=== PATIENT | male | born 2000 | race Caucasian/White ===

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

== ENCOUNTER 2021-05-15 08:42 | Emergency (ER) | payer OTHER ==
[~2021-05-15] VITALS: Ht 172.7 cm; Wt 82.7 kg
[2021-05-15 08:42] VITALS: BP 134/70
[~2021-05-15 08:42] MED LIST changes: -ASPE4PAD TOP; -METH-1165 PO; -NAPR-837 PO
--- OUTSIDE RECORDS SUMMARY | 2021-05-15 08:48 | CCD ---
Author Author [facility] Organization [facility] Address Unknown Phone Unavailable Care Team Providers Care Signs Sales Representative Name Role Phone Lizama, Mariia C UNIX DEVELOPER Unavailable Unavailable Lizama, Mariia C UNIX DEVELOPER Unavailable Unavailable Lizama, Mariia C UNIX DEVELOPER Unavailable Unavailable Lizama, Mariia C UNIX DEVELOPER Unavailable Unavailable Lizama, Mariia C UNIX DEVELOPER Unavailable Unavailable Lizama, Mariia C UNIX DEVELOPER Unavailable Unavailable Lizama, Mariia C UNIX DEVELOPER Unavailable Unavailable Lizama, Mariia C UNIX DEVELOPER Unavailable Unavailable Lizama, Mariia C UNIX DEVELOPER Unavailable Unavailable Lizama, Mariia C UNIX DEVELOPER Unavailable Unavailable Lizama, Mariia C UNIX DEVELOPER Unavailable Unavailable Lizama, Mariia C UNIX DEVELOPER Unavailable Unavailable Lizama, Mariia C UNIX DEVELOPER Unavailable Unavailable Re-disclosure Warning The records that you are about to access may contain information from federally-assisted alcohol or drug abuse programs. If such information is present, then the following federally mandated warning applies: This information has been disclosed to you from records protected by federal confidentiality rules (42 CFR part 2). The federal rules prohibit you from making any further disclosure of this information unless further disclosure is expressly permitted by the written consent of the person to whom it pertains or as otherwise permitted by 42 CFR part 2. A general authorization for the release of medical or other information is NOT sufficient for this purpose. The Federal rules restrict any use of the information to criminally investigate or prosecute any alcohol or drug abuse patient.The records that you are about to access may contain highly sensitive health information, the redisclosure of which is protected by Article 27-F of the [facility] Public Health law. If you continue you may have access to information: Regarding HIV / AIDS; Provided by facilities licensed or operated by the [facility] Office of Mental Health; or Provided by the [facility] Office for People With Developmental Disabilities. If such information is present, then the following [facility] mandated warning applies: This information has been disclosed to you from confidential records which are protected by state law. State law prohibits you from making any further disclosure of this information without the specific written consent of the person to whom it pertains, or as otherwise permitted by law. Any unauthorized further disclosure in violation of state law may result in a fine or custodial sentence or both. A general authorization for the release of medical or other information is NOT sufficient authorization for further disc losure. Family History Family Member Name Family Member Gender Family Member Status Date o f Status Description Data Source(s) Unknown Unknown Problem [facility] ([facility]) father Encounters Encounter Providers Location Date Indications Data Source(s ) Outpatient Attender: Mariia telles 08/18/2020 12:30:00 PM EST [facility] ([facility]) Medications Medication Brand Name Start Date Product Form Dose Route Admi nistrative Instructions Pharmacy Instructions Status Indications Reaction Description Data Source(s) 875 mg 07/24/2020 12:00:00 AM EST tablet 20 TAKE ONE TABLET BY MOUTH TWICE A DAY TAKE ONE TABLET BY MOUTH TWICE A DAY SOLD: 07/24/2020 [facility] 50 mcg/actuation 07/24/2020 12:00:00 AM EST spray,suspension 16 SPRAY TWO SPRAYS IN EACH NOSTRIL ONCE DAILY SPRAY TWO SPRAYS IN EACH NOSTRIL ONCE DAILY SOLD: 07/24/2020 [facility] Insurance Providers Payer name Policy type / Coverage type Policy ID Covered green party ID Covered green party's relationship to selby Policy Selby Plan Information [employer] Claims Health Maintenance Organization (HMO) [id number] Family Dependent [employer] [id number] Family Dependent r/[facility]/[employer] Health Maintenance Organization (HMO) [id number] Self [id number] [employer] [id number] FA2 [id number] [employer] [id number] Family Dependent [id number] [employer] [id number] Family Dependent [id number] [employer] [id number] 2.0.1.484879.3.227.99.1 767.05053.0 Family Dependent [id number] [employer] [id number] [id number] [id number] Family Dependent [id number] [employer] [id number] 2.0.1.630775.3.227.99.1 767.06404.0 Family Dependent [id number] [employer] [id number] [id number] [id number] Family Dependent [id number] [employer] [id number] 2.0.1.591426.3.227.99.1 767.48467.0 Family Dependent [id number] [employer] [id number] 2.0.1.707187.3.227.99.1 767.61086.0 Family Dependent [id number] [employer] [id number] Family Dependent [id number] [employer] [id number] 2.0.1.108346.3.227.99.1 767.68356.0 Family Dependent [id number] [employer] [id number] [id number] 767.76561.0 Family Dependent [id number] [employer] [id number] [id number] [employer] [id number] [employer] [id number] [employer] [id number] [employer] [id number] [facility] Health Claims Health Maintenance Organization (HMO) [id number] Family Dependent [facility] [id number] FA2 [id number] [employer] P[employer] P [id number] C [id number] [employer] P [id number] O [id number] Problems, Conditions, and Diagnoses No Information Surgeries/Procedures No Information Results No Information Social History No Information Vital Signs ID Date Data Source UNK Name Value Range Interpretation Code Description Data Source(s) Systolic blood pressure 130 mm[Hg] 130 mm[Hg] [facility] Diastolic blood pressure 78 mm[Hg] 78 mm[Hg] [facility] Heart rate 67 /min 67 /min [facility] ([facility], [facility]) Respiratory rate 16 /min 16 /min [facility] ( [facility], [facility]) Oxygen saturation in Arterial blood by Pulse oximetry 97 % 97 % [facility] ([facility], [facility]) Body temperature 97.5 [degF] 97.5 [degF] [facility] ([facility], [facility]) Body weight 195.00 [lb_av] 195.00 [lb_av] [facility] ([facility], [facility]) Body height 68 [in_i] 68 [in_i] [facility] ([facility]) 5'8" Body mass index (BMI) [Ratio] 29.6 kg/m2 29.6 k g/m2 [facility] ([facility], [facility])
[2021-05-15] MEDS ORDERED: diazePAM 5MG TABLET PO ONE (10:25)
[2021-05-15] MEDS ORDERED: diazePAM 10 MG TAB PO ONE (10:25)
[2021-05-15] MEDS ORDERED: KETOROLAC 60MG 2ML VIAL IM ONE (10:25)
[2021-05-15] MEDS ORDERED: LIDOCAINE 5% (LIDODERM) PATCH TD ONE (10:25)
--- OUTSIDE RECORDS SUMMARY | 2021-05-15 10:40 | CCD ---
Author Author [facility] Organization [facility] Address Unknown Phone Unavailable Care Team Providers Care Hand Sprayer Name Role Phone Lizama, Mariia SCAFFOLD WORKER Unavailable Unavailable Lizama, Mariia SCAFFOLD WORKER Unavailable Unavailable Lizama, Mariia SCAFFOLD WORKER Unavailable Unavailable Lizama, Mariia SCAFFOLD WORKER Unavailable Unavailable Lizama, Mariia SCAFFOLD WORKER Unavailable Unavailable Lizama, Mariia SCAFFOLD WORKER Unavailable Unavailable Lizama, Mariia SCAFFOLD WORKER Unavailable Unavailable Lizama, Mariia SCAFFOLD WORKER Unavailable Unavailable Lizama, Mairia SCAFFOLD WORKER Unavailable Unavailable Lizama, Mariia SCAFFOLD WORKER Unavailable Unavailable Lizama, Mariia SCAFFOLD WORKER Unavailable Unavailable Lizama, Mariia SCAFFOLD WORKER Unavailable Unavailable Lizama, Mariia SCAFFOLD WORKER Unavailable Unavailable Re-disclosure Warning The records that [...] is protected by Article 27-F of the [facility] Public Health law. If you continue you may have access to information: Regarding HIV / AIDS; Provided by facilities licensed or operated by the [facility] Office of Mental Health; or Provided by the [facility] Office for People With Developmental Disabilities. If such information is present, then the following [facility] mandated warning applies: This information has been [...] Mariia telles 08/18/2020 12:30:00 PM EST [facility] ([facility]) Medications Medication Brand [...] type / Coverage type Policy ID Covered republican ID Covered republican's relationship to selby Policy Selby Plan Information [employer] Claims Health Maintenance Organization (HMO) [id number] Family Dependent [employer] [id number] Family Dependent r/[facility]/[employer] Health Maintenance Organization (HMO) [id number] Self [id number] [employer] [id number] FA2 [id number] [employer] [id number] [id number] [id number] Family Dependent [id number] [employer] [id number] 2.840.1.116228.3.227.99.1 767.81188.0 Family Dependent [id number] [employer] [id number] 2.0.1.710845.3.227.99.1 767.38314.0 Family Dependent [id number] [employer] [id number] 2.0.1.663160.3.227.99.1 767.80024.0 Family Dependent [id number] [employer] [id number] 2.0.1.648128.3.227.99.1 767.64343.0 Family Dependent [id number] [employer] [id number] 2.0.1.482956.3.227.99.1 767.02617.0 Family Dependent [id number] [employer] [id number] 2.0.1.356127.3.227.99.1 767.15219.0 Family Dependent [id number] [employer] [id number] 2.0.1.843831.3.227.99.1 767.67793.0 Family Dependent [id number] [employer] [id number] [id number] 767.92290.0 Family Dependent [id number] [employer] [id number] 2.0.1.008761.3.227.99.1 767.18078.0 Family Dependent [id number] [employer] [id number] 2.0.1.391318.3.227.99.1 767.85486.0 Family Dependent [id number] [employer] [id number] 2.0.1.902[id number] [employer] [id number] 2.16.840.1.444[id number] [employer] [id number] 2.16.840.1.260[id number] [employer] [id number] [employer] [id number] [facility] Health Claims Health Maintenance Organization (HMO) [id number] Family Dependent [facility] [id number] FA2 [id number] [employer] P[employer] P [id number] C [id number] [employer] P [id number] O [id number] Problems, Conditions, and Diagnoses No Information Surgeries/Procedures No Information Results No Information Social History No Information Vital Signs ID Date Data Source UNK Name Value Range Interpretation Code Description Data Source(s) Systolic blood pressure 130 mm[Hg] 130 mm[Hg] [facility]) Diastolic blood pressure 78 mm[Hg] 78 mm[Hg] [facility], [facility]) Heart rate 67 /min 67 /min [facility] ([facility], [facility]) Respiratory rate 16 /min 16 /min [facility] ( [facility], [facility]) Oxygen saturation in Arterial blood by Pulse oximetry 97 % 97 % [facility] ([facility], [facility]) Body temperature 97.5 [degF] 97.5 [degF] [facility] ([facility], [facility]) Body weight 195.00 [lb_av] 195.00 [lb_av] [facility] ([facility], [facility]) Body height 68 [in_i] 68 [in_i] [facility] ([facility]) 5'8" Body mass index (BMI) [Ratio] 29.6 kg/m2 29.6 k g/m2 [facility] ([facility], [facility])
[2021-05-15] MEDS ORDERED: NAPR-837 PO (11:06)
[2021-05-15] MEDS ORDERED: METH-1165 PO (11:06)
[2021-05-15] MEDS ORDERED: ASPE4PAD TOP (11:06)
[2021-05-15] MEDS ORDERED: **NOTE PATIENT COMMENT** MISC XX SCH (21:00)
== END 2021-05-15 11:14 | disposition home or self-care (01) ==
LOC: M ED 08:42
DX: M54.50 Low back pain, unspecified (principal)
CPT/HCPCS: 96372; 99282; J1885

== ENCOUNTER → 2021-05-15 | Outpatient (CLI) | payer OTHER ==
[~2021-05-15] MED LIST changes: -ACET1TAB17 PO; +ACET1TAB55 PO; +ASPE4PAD TOP; +METH-1165 PO; +MILK120011 PO; -MILKSUS PO; +NAPR-837 PO; +ZOFR4TAB14 PO
--- NOTE | 2021-05-15 13:22 | REP ---
INDICATION: LOW BACK PAIN COMPARISON: None. TECHNIQUE: AP, lateral, coned-down views of the lumbar spine. FINDINGS: Three views of the lumbosacral spine demonstrate satisfactory alignment and lordosis without acute fracture / compression injury or subluxation. No significant degenerative changes are appreciated. 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 IMPRESSION: 1. No acute fracture / compression injury or subluxation. 2. No significant degenerative changes. 3. 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 <Electronically signed by Maikel Hwang > 05/15/21 [id number]
== END ==
LOC: M SOG 13:05
PROVIDERS: ATTEND Orthopaedic Surgery
DX: M54.50 Low back pain, unspecified (principal)

== ENCOUNTER → 2021-11-16 | Outpatient (REF) | payer OTHER ==
[~2021-11-16] MED LIST changes: +ASPE4PAD TOP; +METH-1165 PO; +NAPR-837 PO
== END ==
LOC: M LAB REF 17:21
PROVIDERS: ATTEND Pain Medicine Interventional Pain Medicine
DX: Z01.89 Encounter for other specified special examinations (principal)

== ENCOUNTER 2023-11-29 04:31 | Emergency (ER) | payer OTHER ==
[~2023-11-29] VITALS: Ht 172.7 cm; Wt 93.0 kg
[2023-11-29] MEDS: NS 1,000 ML IV ONE ×2 (04:50→05:20)
[2023-11-29 05:02] LABS: BASO % 0.3 % (0.0-1.0); EOS # 0.2 10^3/uL (0.0-0.5); EOS % 1.8 % (0.0-3.0); HEMOGLOBIN 15.5 g/dl (13.5-17.5); LYMPH # 2.2 10^3/uL (1.5-5.0); LYMPH % 17.5 % (24.0-44.0); MEAN CORPUSCULAR HEMOGLOBIN 31.7 pg (27.0-33.0); MEAN CORPUSCULAR VOLUME 85.9 fl (80.0-96.0); MONO # 0.9 10^3/uL (0.0-0.8); MONO % 7.5 % (2.0-8.0); NEUTROPHILS # 9.1 10^3/uL (1.5-8.5); NEUTROPHILS % 72.7 % (36.0-66.0); PLATELET COUNT, AUTOMATED 273 10^3/uL (150-450); RED BLOOD COUNT 4.89 10^6/uL (4.30-6.10); WHITE BLOOD COUNT 12.6 10^3/uL (4.0-10.0)
[2023-11-29 05:05] LABS: MEAN CORPUSCULAR HGB CONC 36.9 g/dl (32.0-36.5)
[2023-11-29 05:30] LABS: BLOOD UREA NITROGEN 15 MG/DL (9-23); CALCIUM LEVEL 8.9 MG/DL (8.5-10.1); CARBON DIOXIDE LEVEL 21 MMOL/L (20-31); CHLORIDE LEVEL 107 MMOL/L (98-107); CK-MB VALUE MASS < 1.0 NG/ML (<3.6); CREATININE FOR GFR 0.85 MG/DL (0.70-1.30); GLOMERULAR FILTRATION RATE > 60.0 (>60); GLUCOSE, FASTING 83 MG/DL (60-100); MAGNESIUM LEVEL 1.8 MG/DL (1.8-2.4); POTASSIUM SERUM 3.8 MMOL/L (3.5-5.1); SODIUM LEVEL 139 MMOL/L (136-145)
[2023-11-29 05:33] LABS: CPK CREATINE PHOSPHOKINASE 271 U/L (46-171); MB/CK RELATIVE INDEX 0.36 (< OR =4)
[2023-11-29 06:34] LABS: CK-MB VALUE MASS < 1.0 NG/ML (<3.6)
[2023-11-29 06:39] LABS: CPK CREATINE PHOSPHOKINASE 234 U/L (46-171); MB/CK RELATIVE INDEX 0.42 (< OR =4)
[2023-11-29 07:29] VITALS: BP 116/65; TEMP 98.1; O2SAT 97
== END 2023-11-29 07:31 | disposition home or self-care (01) ==
LOC: M ED 04:31 → EDBD 04:31 → M ED 07:31
DX: T67.5XXA Heat exhaustion, unspecified, initial encounter (principal)

== ENCOUNTER → 2025-02-16 | Outpatient (REF) | payer OTHER ==
[~2025-02-16] MED LIST changes: -ADV250INH INH; +ADVA1AER9 INH
== END ==
LOC: M LAB REF 14:13
PROVIDERS: ATTEND Internal Medicine
DX: Z82.49 Family history of ischemic heart disease and other diseases of the circulatory system (principal)